=== PATIENT | male | born 1995 | race Hispanic/Latino ===

== ENCOUNTER 2019-09-07 00:30 | Emergency (ER) | payer BC, OTHER ==
[2019-09-07] MEDS ORDERED: HYDROcodone/Acetaminophen 5/325 mg Tablet ONE (01:35)
[2019-09-07] MEDS ORDERED: Ondansetron ODT 4 MG TAB ONE (02:05)
== END 2019-09-07 02:09 | disposition home or self-care (01) ==
LOC: ERS 00:30
DX: J10.1 Influenza due to other identified influenza virus with other respiratory manifestations (principal)
CPT/HCPCS: 87081; 87430; 87804; 99283; Q0162

== ENCOUNTER 2023-12-03 11:23 | Outpatient (CLI) | payer BC | END 2023-12-03 11:24 | disposition home or self-care (01) | LOC: RAD 11:23 | PROVIDERS: ATTEND Student in an Organized Health Care Education/Training Program | DX: M79.642 Pain in left hand (principal) ==